=== PATIENT | male | born 1935 | race Two or more races ===

== ENCOUNTER 2017-12-18 05:33 | Emergency (ER) | payer MEDICARE ==
[~2017-12-18] VITALS: Ht 157.5 cm; Wt 68.0 kg
[2017-12-18] MEDS ORDERED: LORazepam 2 MG/ML, 1ML ONE (06:21)
[2017-12-18] MEDS ORDERED: LORazepam 2 MG/ML, 1ML IVPush ONE (06:30)
[2017-12-18 06:32] LABS: BASOPHILS # (AUTO) 0.06 x10^3/uL (0-0.1); BASOPHILS % (AUTO) 1 % (0-1); EOSINOPHILS # (AUTO) 0.06 x10^3/uL (0-0.4); EOSINOPHILS % (AUTO) 1 % (1-7); LYMPHOCYTES # (AUTO) 1.35 x10^3/uL (1-3.4); LYMPHOCYTES % (AUTO) 17 % (22-44); MD NO; MEAN CORPUSCULAR HEMOGLOBIN 37.3 pg (27.5-34.5); MEAN CORPUSCULAR HGB CONC 34.4 g/dL (33.2-36.2); MEAN CORPUSCULAR VOLUME 108.4 fL (81-97); MEAN PLATELET VOLUME 7.1 fL (7.4-10.4); MONOCYTES % (AUTO) 10 % (2-9); NEUTROPHILS # (AUTO) 5.53 x10^3/uL (1.8-6.8); NEUTROPHILS % (AUTO) 71 % (42-75); PLATELET COUNT 455 x10^3/uL (130-400); RED BLOOD COUNT 4.37 x10^6/uL (4.38-5.82); RED CELL DISTRIBUTION WIDTH 15.4 % (9.4-14.8)
[2017-12-18 06:35] LABS: INTERNATIONAL NORMALIZED RATIO 1.1 (0.93-1.1); PROTHROMBIN TIME 11.3 Seconds (9.6-11.5)
[2017-12-18 06:39] LABS: ALANINE AMINOTRANSFERASE 28 U/L (12-78); ALBUMIN 4.2 g/dL (3.4-5.0); ANION GAP 9 mmol/L (5-15); CALCIUM 9.2 mg/dL (8.5-10.1); CHLORIDE 101 mmol/L (98-107); CREATININE 1.14 mg/dL (0.7-1.3)
[2017-12-18 06:41] LABS: ALKALINE PHOSPHATASE 78 U/L (45-117); BILIRUBIN,TOTAL 1.3 mg/dL (0.2-1.0); TOTAL PROTEIN 8.5 g/dL (6.4-8.2)
[2017-12-18] MEDS ORDERED: SODIUM CHLORIDE 0.9% 1,000ML IVBOLUS ONE (07:00)
[2017-12-18] MEDS ORDERED: SODIUM CHLORIDE FLUSH 10ML SYR IVF ONE (07:00)
[2017-12-18 08:38] VITALS: BP 171/78
== END 2017-12-18 08:51 | disposition home or self-care (01) ==
LOC: ED 07:10
DX: F13.239 Sedative, hypnotic or anxiolytic dependence with withdrawal, unspecified (principal); I10 Essential (primary) hypertension; K21.9 Gastro-esophageal reflux disease without esophagitis; R10.13 Epigastric pain
CPT/HCPCS: 36415; 80053; 83605; 83690; 85025; 85610; 93005; 96374; 99285; J2060; J7030

== ENCOUNTER 2018-06-19 13:31 | Emergency (ER) | payer MEDICARE ==
[~2018-06-19] VITALS: Ht 160 cm; Wt 70.0 kg
[2018-06-19 13:39] VITALS: BP 171/86
[2018-06-19 14:19] LABS: BASOPHILS # (AUTO) 0.03 x10^3/uL (0-0.1); BASOPHILS % (AUTO) 0 % (0-1); EOSINOPHILS # (AUTO) 0.08 x10^3/uL (0-0.4); EOSINOPHILS % (AUTO) 1 % (1-7); LYMPHOCYTES # (AUTO) 1.28 x10^3/uL (1-3.4); LYMPHOCYTES % (AUTO) 14 % (22-44); MD NO; MEAN CORPUSCULAR HGB CONC 33.8 g/dL (33.2-36.2); MEAN CORPUSCULAR VOLUME 109.2 fL (81-97); MEAN PLATELET VOLUME 7.2 fL (7.4-10.4); MONOCYTES # (AUTO) 0.65 x10^3/uL (0.2-0.8); MONOCYTES % (AUTO) 7 % (2-9); NEUTROPHILS # (AUTO) 7.42 x10^3/uL (1.8-6.8); NEUTROPHILS % (AUTO) 78 % (42-75); PLATELET COUNT 252 x10^3/uL (130-400); RED BLOOD COUNT 4.21 x10^6/uL (4.38-5.82); RED CELL DISTRIBUTION WIDTH 14.8 % (9.4-14.8)
[2018-06-19 14:32] LABS: ALBUMIN 3.8 g/dL (3.4-5.0); ANION GAP 5 mmol/L (5-15); CHLORIDE 98 mmol/L (98-107); CREATININE 0.92 mg/dL (0.7-1.3)
--- NOTE | 2018-06-19 15:49 | NUR ---
TO ED ROOM 26 PER W/C. THEN, TO & FROM BR PER W/C W/OUT INCIDENT.
[2018-06-19 16:14] LABS: MICROSCOPIC NOT IND
[2018-06-19 16:16] LABS: CULTURE INDICATED? NO
--- NOTE | 2018-06-19 16:20 | NUR ---
PT CURRENTLY FULLY DRESSED & SITTING IN W/C. DAUGHTER & SPOUSE IN ROOM. PER DAUGHTER, PT "TWEAKED HIS BACK A COUPLE OF WEEKS AGO" HAD LOWER BACK PAIN RADIATING DOWN LEGS. CURRENTLY REPORTS RT & LT HIP AREA PAIN RADIATING DOWN BOTH LEGS. SX INTERFERRING W/ WALKING PER DAUGHTER (USUALLY WALKS W/OUT DIFFICULTY). HX SPINAL SURGERY. NAPROXEN 500MG BID, ULTRAM 50MG BID - HAS BEEN TAKING 50 QID RECENTLY.
[2018-06-19] MEDS ORDERED: NAPR-685 PO (16:27)
[2018-06-19] MEDS ORDERED: TRAM-47 PO (16:27)
[2018-06-19] MEDS ORDERED: METHOCARBAMOL 750 MG TABLET PO ONE (17:00)
[2018-06-19] MEDS ORDERED: METHOCARBAMOL 750 MG TABLET ONE (17:22)
--- NOTE | 2018-06-19 17:30 | NUR ---
PT FULLY DRESSED, SITTING IN WC, AWAITING DC.
--- NOTE | 2018-06-19 19:32 | NUR ---
PT MED LIST ATTACHED TO CHART.
== END 2018-06-19 18:15 | disposition home or self-care (01) ==
LOC: ED 17:06
DX: S39.012A Strain of muscle, fascia and tendon of lower back, initial encounter (principal); M51.16 Intervertebral disc disorders with radiculopathy, lumbar region; M46.1 Sacroiliitis, not elsewhere classified; I10 Essential (primary) hypertension; K21.9 Gastro-esophageal reflux disease without esophagitis; F41.1 Generalized anxiety disorder; X58.XXXA Exposure to other specified factors, initial encounter; Y92.89 Other specified places as the place of occurrence of the external cause; Y93.89 Activity, other specified; Y99.8 Other external cause status
CPT/HCPCS: 36415; 72110; 80048; 81003; 82040; 85025; 99284

== ENCOUNTER → 2018-08-23 | Outpatient (CLI) | payer MEDICARE ==
[~2018-08-23] MED LIST: ASPI81TA45 PO; GABA-826 PO; HYDR-3237 PO; HYDR500C3 PO; LISI-167 PO; LORA-445 PO; MELA1TAB8 PO; METH750T2 PO; MULT-717 PO; NAPR-685 PO; PANT20TA3 PO; TRAM-47 PO
[2018-08-23 16:32] LABS: BASOPHILS # (AUTO) 0.02 x10^3/uL (0-0.1); BASOPHILS % (AUTO) 0 % (0-1); EOSINOPHILS # (AUTO) 0.11 x10^3/uL (0-0.4); EOSINOPHILS % (AUTO) 1 % (1-7); LYMPHOCYTES # (AUTO) 1.52 x10^3/uL (1-3.4); LYMPHOCYTES % (AUTO) 21 % (22-44); MD NO; MEAN CORPUSCULAR HEMOGLOBIN 36.6 pg (27.5-34.5); MEAN CORPUSCULAR HGB CONC 34.1 g/dL (33.2-36.2); MEAN CORPUSCULAR VOLUME 107.4 fL (81-97); MEAN PLATELET VOLUME 7.3 fL (7.4-10.4); MONOCYTES % (AUTO) 7 % (2-9); NEUTROPHILS # (AUTO) 5.27 x10^3/uL (1.8-6.8); NEUTROPHILS % (AUTO) 71 % (42-75); PLATELET COUNT 183 x10^3/uL (130-400); RED BLOOD COUNT 4.24 x10^6/uL (4.38-5.82); RED CELL DISTRIBUTION WIDTH 14.7 % (9.4-14.8)
[2018-08-23 16:40] LABS: INTERNATIONAL NORMALIZED RATIO 1.12 (0.93-1.1); PROTHROMBIN TIME 11.7 Seconds (9.6-11.5)
[2018-08-23 16:42] LABS: ANION GAP 5 mmol/L (5-15); CALCIUM 8.5 mg/dL (8.5-10.1); CHLORIDE 102 mmol/L (98-107); CREATININE 0.86 mg/dL (0.7-1.3)
== END | disposition home or self-care (01) ==
LOC: STAR 15:33
PROVIDERS: ATTEND Neurological Surgery
DX: M47.27 Other spondylosis with radiculopathy, lumbosacral region (principal)
CPT/HCPCS: 36415; 80048; 85025; 85610; 85730; 93005

== ENCOUNTER 2018-09-09 14:43 | Inpatient (IN) | payer MEDICARE ==
[2018-08-23 15:35] VITALS: BP 162/93
[~2018-09-09] VITALS: Ht 157.5 cm; Wt 64.4 kg
[~2018-09-09 14:43] MED LIST changes: +BACITRACIN 50,000 UNIT ONE; +BUPIVACAINE/PF-EPI 0.5% 1:200K ONE; +NEOSPORIN OINT. PKT 1 PACKET ONE; +THROMBIN 5,000 UNIT VIAL TP ONE; +VANCOMYCIN 1,000 MG ONE; +methylPREDNISolone *ACETATE* 40 MG/ML ONE
[2018-09-09] MEDS ORDERED: LACTATED RINGERS 1,000 ML IV SCH (15:26)
[2018-09-09] MEDS ORDERED: METOPROLOL 1 MG/ML, 5ML IV PRN (16:00)
[2018-09-09] MEDS ORDERED: LABETALOL 5MG/ML, 20ML IV PRN (16:00)
[2018-09-09] MEDS ORDERED: hydrALAzine 20 MG/ML, 1ML IV PRN (16:00)
[2018-09-09] MEDS ORDERED: ACETAMINOPHEN 325 MG TABLET PO PRN (16:00)
[2018-09-09] MEDS ORDERED: ALBUTEROL/IPRATROPIUM 2.5MG/0.5MG, 3 ML NPPB PRN (16:00)
[2018-09-09] MEDS ORDERED: OXYcodone 5 MG/5 ML ORAL.SOL UDC PO PRN (16:00)
[2018-09-09] MEDS ORDERED: LORazepam 2 MG/ML, 1ML IVPush PRN (16:00)
[2018-09-09] MEDS ORDERED: FENTANYL PF 250 MCG/5ML ONE (16:31)
[2018-09-09] MEDS ORDERED: CEFAZOLIN 1,000 MG ONE (17:17)
[2018-09-09] MEDS ORDERED: DEXAMETHASONE 4 MG/ML, 1ML ONE (17:17)
[2018-09-09] MEDS ORDERED: LIDOCAINE 2% 100MG/5ML SYRINGE ONE (17:17)
[2018-09-09] MEDS ORDERED: SUCCINYLCHOLINE 20 MG/ML, 10ML ONE (17:17)
[2018-09-09] MEDS ORDERED: PROPOFOL 10 MG/ML, 20ML ONE (17:17)
[2018-09-09] MEDS ORDERED: FENTANYL PF 100 MCG/2ML ONE (19:39)
[2018-09-09] MEDS ORDERED: OXYcodone 5 MG/5 ML ORAL.SOL UDC ONE (19:39)
[2018-09-09] MEDS: FENTANYL PF 100 MCG/2ML IV PRN ×2 (19:49→19:56)
[2018-09-09] MEDS ORDERED: HYDROmorphone 2 MG/ML, 1ML ONE (19:56)
[2018-09-09] MEDS: HYDROmorphone 2 MG/ML, 1ML IVPush PRN ×2 (20:02→20:12)
[2018-09-09] MEDS ORDERED: hydrALAzine 20 MG/ML, 1ML IVPush PRN (21:30)
[2018-09-09 22:00] VITALS: BP 161/73
[2018-09-10 00:10] VITALS: BP 144/83
[2018-09-10] MEDS ORDERED: HYDROcodone/APAP 10/325 MG TABLET PO PRN (00:30)
[2018-09-10] MEDS ORDERED: DIPHENHYDRAMINE 50 MG/ML, 1ML IVPush PRN (00:30)
[2018-09-10] MEDS ORDERED: ONDANSETRON 2MG/ML, 2ML IV PRN (00:30)
[2018-09-10] MEDS ORDERED: METHOCARBAMOL 750 MG TABLET PO PRN (00:30)
[2018-09-10] MEDS ORDERED: HYDROmorphone 2 MG/ML, 1ML IV PRN (00:30)
[2018-09-10] MEDS ORDERED: MELATONIN 5 MG TABLET PO PRN (00:30)
[2018-09-10] MEDS ORDERED: LABETALOL 5MG/ML, 20ML IV PRN (00:30)
[2018-09-10] MEDS ORDERED: MAGNESIUM HYDROXIDE 8%, 30ML UDC PO PRN (00:30)
[2018-09-10] MEDS ORDERED: BISACODYL 10 MG SUPP PR PRN (00:30)
[2018-09-10] MEDS ORDERED: PROMETHAZINE 25 MG/ML, 1ML IM PRN (00:30)
[2018-09-10] MEDS ORDERED: HYDROcodone/APAP 5/325 TABLET PO PRN (00:30)
[2018-09-10] MEDS: D5%-0.9% NACL+KCL 20MEQ 1,000 ML IV SCH ×2 (03:16→10:30)
[2018-09-10] MEDS: KETOROLAC 30 MG/1 ML IV SCH ×3 (03:17→18:09)
[2018-09-10] MEDS: CEFAZOLIN PMX 1GM/50ML 50 ML IVPB SCH ×2 (03:17→11:45)
[2018-09-10 04:09] VITALS: BP 161/69
[2018-09-10 04:56] LABS: BASOPHILS # (AUTO) 0.05 x10^3/uL (0-0.1); BASOPHILS % (AUTO) 1 % (0-1); EOSINOPHILS % (AUTO) 0 % (1-7); LYMPHOCYTES # (AUTO) 0.79 x10^3/uL (1-3.4); LYMPHOCYTES % (AUTO) 8 % (22-44); MD NO; MEAN CORPUSCULAR HEMOGLOBIN 36.9 pg (27.5-34.5); MEAN CORPUSCULAR HGB CONC 34.2 g/dL (33.2-36.2); MEAN CORPUSCULAR VOLUME 108.1 fL (81-97); MEAN PLATELET VOLUME 7.7 fL (7.4-10.4); MONOCYTES # (AUTO) 0.49 x10^3/uL (0.2-0.8); MONOCYTES % (AUTO) 5 % (2-9); NEUTROPHILS # (AUTO) 8.96 x10^3/uL (1.8-6.8); NEUTROPHILS % (AUTO) 87 % (42-75); PLATELET COUNT 407 x10^3/uL (130-400); RED BLOOD COUNT 4.36 x10^6/uL (4.38-5.82); RED CELL DISTRIBUTION WIDTH 15.1 % (9.4-14.8)
[2018-09-10 05:09] LABS: CHLORIDE 101 mmol/L (98-107)
[2018-09-10 05:13] LABS: ALANINE AMINOTRANSFERASE 19 U/L (12-78); ALBUMIN 3.6 g/dL (3.4-5.0); ALKALINE PHOSPHATASE 85 U/L (45-117); ANION GAP 7 mmol/L (5-15); CALCIUM 8.4 mg/dL (8.5-10.1); CREATININE 0.99 mg/dL (0.7-1.3); TOTAL PROTEIN 7.3 g/dL (6.4-8.2)
[2018-09-10] MEDS ORDERED: METHOCARBAMOL 750 MG TABLET PO SCH (09:00)
[2018-09-10] MEDS ORDERED: PANTOPRAZOLE 20MG TABLET PO SCH (09:00)
[2018-09-10] MEDS ORDERED: HYDROcodone/APAP 5/325 TABLET PO SCH (09:00)
[2018-09-10] MEDS ORDERED: HYDROXYUREA 500 MG CAPSULE PO SCH (09:00)
[2018-09-10] MEDS ORDERED: LORazepam 0.5MG TABLET PO SCH (09:00)
[2018-09-10] MEDS: SENNA/DOCUSATE TABLET PO SCH (09:12)
[2018-09-10] MEDS: LISINOPRIL 10 MG TABLET PO SCH (09:12)
[2018-09-10 09:23] VITALS: BP 174/80
[2018-09-10] MEDS ORDERED: hydrALAzine 20 MG/ML, 1ML ONE (09:30)
[2018-09-10] MEDS ORDERED: hydrALAzine 20 MG/ML, 1ML IV PRN ×2 (09:30→17:30)
[2018-09-10 11:20] VITALS: BP 157/72
[2018-09-10 13:40] VITALS: BP 143/72
[2018-09-10] MEDS ORDERED: LORazepam 0.5MG TABLET ONE (16:46)
[2018-09-10] MEDS: LORazepam 0.5MG TABLET PO SCH (16:47)
[2018-09-10 18:15] VITALS: BP 146/75
[2018-09-10] MEDS ORDERED: GABAPENTIN 100 MG CAPSULE PO SCH (21:00)
[2018-09-11 00:35] VITALS: BP 172/83
[2018-09-11 00:59] VITALS: BP 153/82
[2018-09-11 01:57] VITALS: BP 149/78
[2018-09-11] MEDS: KETOROLAC 30 MG/1 ML IV SCH (02:22)
[2018-09-11 05:28] LABS: BASOPHILS # (AUTO) 0.02 x10^3/uL (0-0.1); BASOPHILS % (AUTO) 0 % (0-1); EOSINOPHILS % (AUTO) 1 % (1-7); LYMPHOCYTES # (AUTO) 1.04 x10^3/uL (1-3.4); LYMPHOCYTES % (AUTO) 12 % (22-44); MD NO; MEAN CORPUSCULAR HGB CONC 34.1 g/dL (33.2-36.2); MEAN CORPUSCULAR VOLUME 108.6 fL (81-97); MEAN PLATELET VOLUME 7.5 fL (7.4-10.4); MONOCYTES # (AUTO) 0.75 x10^3/uL (0.2-0.8); MONOCYTES % (AUTO) 9 % (2-9); NEUTROPHILS # (AUTO) 6.71 x10^3/uL (1.8-6.8); NEUTROPHILS % (AUTO) 78 % (42-75); PLATELET COUNT 387 x10^3/uL (130-400); RED BLOOD COUNT 3.91 x10^6/uL (4.38-5.82); RED CELL DISTRIBUTION WIDTH 15.3 % (9.4-14.8)
[2018-09-11 05:39] LABS: ANION GAP 6 mmol/L (5-15); CHLORIDE 103 mmol/L (98-107); CREATININE 0.98 mg/dL (0.7-1.3)
[2018-09-11 06:47] VITALS: BP 125/67
[2018-09-11] MEDS: SENNA/DOCUSATE TABLET PO SCH (08:19)
[2018-09-11] MEDS: LORazepam 0.5MG TABLET PO SCH (08:19)
[2018-09-11 08:29] VITALS: BP 149/80
[2018-09-11] MEDS ORDERED: HYDROXYUREA 500 MG CAPSULE PO SCH (09:00)
[2018-09-11] MEDS: LISINOPRIL 10 MG TABLET PO SCH (09:00)
== END 2018-09-11 10:40 | disposition home or self-care (01) | DRG 478 ==
LOC: OR 14:43 → ORIP 20:47 → 5SO 22:06 → 4NOR 09-10 11:37
PROVIDERS: ADMIT Family Medicine; ATTEND Neurological Surgery
PROC: 0QB03ZX Excision of Lumbar Vertebra, Percutaneous Approach, Diagnostic (ICD-10-PCS; 2018-09-09)
PROC: 0QS03ZZ Reposition Lumbar Vertebra, Percutaneous Approach (ICD-10-PCS; 2018-09-09)
PROC: 0QU03JZ Supplement Lumbar Vertebra with Synthetic Substitute, Percutaneous Approach (ICD-10-PCS; 2018-09-09)
PROC: 01NB0ZZ Release Lumbar Nerve, Open Approach (ICD-10-PCS; principal; 2018-09-09 16:30)
PROC: 01NR0ZZ Release Sacral Nerve, Open Approach (ICD-10-PCS; 2018-09-09 16:30)
DX: M48.061 Spinal stenosis, lumbar region without neurogenic claudication (principal); M48.56XA Collapsed vertebra, not elsewhere classified, lumbar region, initial encounter for fracture; M54.16 Radiculopathy, lumbar region; D56.9 Thalassemia, unspecified; F41.9 Anxiety disorder, unspecified; I10 Essential (primary) hypertension; R00.1 Bradycardia, unspecified
CPT/HCPCS: 36415; 72100; 76000; 80048; 80053; 84443; 85025; 86850; 86900; 88307; 88311; 93005; 93306; C1713; C1729; G0378; J0690; J1100; J1170; J1885; J2704; J3010; J3370; J0330; J0360; J1030; J3480; J7120

== ENCOUNTER 2019-12-07 11:35 | Emergency (ER) | payer MEDICARE ==
[~2019-12-07] VITALS: Ht 160 cm; Wt 73.6 kg
[~2019-12-07 11:35] MED LIST changes: +ASPI-496 PO; -BACITRACIN 50,000 UNIT ONE; -BUPIVACAINE/PF-EPI 0.5% 1:200K ONE; +GABA300C10 PO; -NEOSPORIN OINT. PKT 1 PACKET ONE; -THROMBIN 5,000 UNIT VIAL TP ONE; -VANCOMYCIN 1,000 MG ONE; +alendronate; +calcium PO; +d3 PO; -methylPREDNISolone *ACETATE* 40 MG/ML ONE
--- NOTE | 2019-12-07 12:18 | NUR ---
Assumed care of patient. C/O left inguinal hernia x 1 month. Daughter states that she has generally been able to reduce it, but it herniates more frequently and is more difficult to reduce. C/O inguinal pain, denies testicular pain. Hernia easily reduced during palpation. Will continue to monitor.
[2019-12-07 13:14] LABS: MEAN CORPUSCULAR HEMOGLOBIN 41.3 pg (27.5-34.5); MEAN CORPUSCULAR HGB CONC 34.1 g/dL (33.2-36.2); MEAN CORPUSCULAR VOLUME 121.3 fL (81-97); MEAN PLATELET VOLUME 6.7 fL (7.4-10.4); PLATELET COUNT 217 x10^3/uL (130-400); RED BLOOD COUNT 2.95 x10^6/uL (4.38-5.82); RED CELL DISTRIBUTION WIDTH 12.6 % (9.4-14.8)
[2019-12-07 13:26] LABS: ALBUMIN 3.5 g/dL (3.4-5.0); ANION GAP 3 mmol/L (5-15); CALCIUM 7.7 mg/dL (8.5-10.1); CHLORIDE 104 mmol/L (98-107); CREATININE 0.88 mg/dL (0.7-1.3)
[2019-12-07 13:30] LABS: BASOPHILS # (AUTO) 0.01 x10^3/uL (0-0.1); BASOPHILS % (AUTO) 0 % (0-1); EOSINOPHILS # (AUTO) 0.04 x10^3/uL (0-0.4); EOSINOPHILS % (AUTO) 1 % (1-7); LYMPHOCYTES # (AUTO) 0.77 x10^3/uL (1-3.4); LYMPHOCYTES % (AUTO) 15 % (22-44); MD SCAN; MONOCYTES # (AUTO) 0.47 x10^3/uL (0.2-0.8); MONOCYTES % (AUTO) 9 % (2-9); NEUTROPHILS # (AUTO) 3.77 x10^3/uL (1.8-6.8); NEUTROPHILS % (AUTO) 75 % (42-75)
--- NOTE | 2019-12-07 13:30 | NUR ---
SBA to the restroom. Steady gait. VSS. IV started. No other needs.
[2019-12-07 13:40] LABS: ALANINE AMINOTRANSFERASE 14 U/L (12-78); ALKALINE PHOSPHATASE 73 U/L (45-117); BILIRUBIN,TOTAL 0.6 mg/dL (0.2-1.0); TOTAL PROTEIN 6.9 g/dL (6.4-8.2)
--- NOTE | 2019-12-07 14:02 | NUR ---
IV infiltrated while in CT. RN made two more failed attempts while in CT. MD Javier aware. Non-con CT to be ordered.
--- NOTE | 2019-12-07 15:00 | NUR ---
Kasey hartman in [facility] - 12/07/19 at 1501 by [facility] admin. No other needs.
[2019-12-07 15:05] VITALS: BP 135/75
--- NOTE | 2019-12-07 15:18 | NUR ---
Patient/Caregiver given discharge instructions and they have confirmed that they understand the instructions. Patient ambulatory with steady gait.
== END 2019-12-07 15:20 | disposition home or self-care (01) ==
LOC: ED 14:02
DX: K40.90 Unilateral inguinal hernia, without obstruction or gangrene, not specified as recurrent (principal); K21.9 Gastro-esophageal reflux disease without esophagitis; I10 Essential (primary) hypertension
CPT/HCPCS: 36415; 74176; 80053; 85025; 99284

== ENCOUNTER 2020-04-12 11:08 | Day surgery (SDC) | payer MEDICARE ==
[2020-04-10 13:59] LABS: ALANINE AMINOTRANSFERASE 16 U/L (12-78); ANION GAP 6 mmol/L (5-15); CALCIUM 8.5 mg/dL (8.5-10.1); CHLORIDE 99 mmol/L (98-107); CREATININE 0.88 mg/dL (0.7-1.3)
[2020-04-10 14:01] LABS: ALKALINE PHOSPHATASE 67 U/L (45-117)
[~2020-04-12] VITALS: Ht 160 cm; Wt 69.6 kg
[~2020-04-12 11:08] MED LIST changes: +ALEN35TA49 PO; +CALC1CAP8 PO; +CHOL10003 PO; +METH500T7 PO; -PANT20TA3 PO; +PANT20TA4 PO
[2020-04-12 11:38] VITALS: BP 135/79
[2020-04-12] MEDS ORDERED: LACTATED RINGERS 1,000 ML IV SCH (12:00)
[2020-04-12] MEDS ORDERED: CHLORHEXIDINE 15 ML UDC MM ONE (12:00)
[2020-04-12] MEDS ORDERED: BUPIVACAINE/PF 0.5% ONE (12:03)
[2020-04-12] MEDS ORDERED: EPINEPHRINE 1 MG/ML, 1ML ONE (12:04)
[2020-04-12] MEDS ORDERED: FENTANYL PF 250 MCG/5ML ONE (12:27)
[2020-04-12] MEDS ORDERED: MIDAZOLAM 1 MG/ML, 2ML ONE (12:27)
[2020-04-12] MEDS ORDERED: SUCCINYLCHOLINE 20 MG/ML, 10ML ONE (13:06)
[2020-04-12] MEDS ORDERED: DEXAMETHASONE 4 MG/ML, 1ML ONE (13:06)
[2020-04-12] MEDS ORDERED: ROCURONIUM 10MG/ML,5ML ONE (13:06)
[2020-04-12] MEDS ORDERED: ONDANSETRON 2MG/ML, 2ML ONE (13:06)
[2020-04-12] MEDS ORDERED: CEFAZOLIN 1,000 MG ONE (13:06)
[2020-04-12] MEDS ORDERED: PROPOFOL 10 MG/ML, 20ML ONE (13:06)
[2020-04-12] MEDS ORDERED: MEPERIDINE/PF 25MG/0.5ML IVPush PRN (13:30)
[2020-04-12] MEDS ORDERED: DIAZEPAM 5 MG/ML, 2ML IVPush PRN (13:30)
[2020-04-12] MEDS ORDERED: LABETALOL 5MG/ML, 20ML IV PRN (13:30)
[2020-04-12] MEDS ORDERED: DIPHENHYDRAMINE 50 MG/ML, 1ML IVPush PRN (13:30)
[2020-04-12] MEDS ORDERED: EPHEDRINE 50 MG/ML, 1ML IVPush PRN (13:30)
[2020-04-12] MEDS ORDERED: PROMETHAZINE 12.5 MG SUPP PR PRN (13:30)
[2020-04-12] MEDS ORDERED: hydrALAzine 20 MG/ML, 1ML IV PRN (13:30)
[2020-04-12] MEDS ORDERED: ONDANSETRON 2MG/ML, 2ML IVPush PRN (13:30)
[2020-04-12] MEDS ORDERED: ALBUTEROL SULFATE 2.5 MG/3 ML NPPB PRN (13:30)
[2020-04-12] MEDS ORDERED: HYDROmorphone 1 MG/ML, 1ML INJ IVPush PRN (13:30)
[2020-04-12] MEDS ORDERED: PROMETHAZINE 25 MG/ML, 1ML IVPush PRN (13:30)
[2020-04-12] MEDS ORDERED: MIDAZOLAM 1 MG/ML, 2ML IV PRN (13:30)
[2020-04-12] MEDS ORDERED: SUGAMMADEX 200 MG/2 ML IVPush ONE (13:54)
[2020-04-12] MEDS ORDERED: FENTANYL PF 100 MCG/2ML ONE (14:53)
[2020-04-12] MEDS: FENTANYL PF 100 MCG/2ML IV PRN ×2 (14:55→15:17)
[2020-04-12] MEDS ORDERED: OXYcodone 5 MG/5 ML ORAL.SOL UDC ONE (14:58)
[2020-04-12] MEDS: OXYcodone 5 MG/5 ML ORAL.SOL UDC PO PRN ×2 (15:00→15:56)
[2020-04-12] MEDS ORDERED: OXYC-302 PO (15:41)
== END 2020-04-12 16:20 | disposition home or self-care (01) ==
LOC: OUT 11:08
PROVIDERS: ATTEND Surgery
DX: K40.90 Unilateral inguinal hernia, without obstruction or gangrene, not specified as recurrent (principal); I10 Essential (primary) hypertension; D45 Polycythemia vera; Z20.828 Contact with and (suspected) exposure to other viral communicable diseases; Z79.82 Long term (current) use of aspirin; Z79.899 Other long term (current) drug therapy
CPT/HCPCS: 36415; 49650; 80053; 93005; C1781; J0171; J0330; J0690; J1100; J2250; J2405; J2704; J3010; J7120; U0003